=== PATIENT | female | born 1990 | race African-American/Black ===

== ENCOUNTER 2018-03-25 12:14 | Emergency (ER) | payer MEDICAID ==
[~2018-03-25] VITALS: Ht 157.5 cm; Wt 63.0 kg
[2018-03-25 15:35] LABS: CLARITY URINE CLEAR (CLEAR); COLOR URINE YELLOW (YELLOW); KETONES URINE NEGATIVE (NEGATIVE); LEUKOCYTE ESTERASE URINE TRACE (NEGATIVE); NITRITE URINE NEGATIVE (NEGATIVE); OCCULT BLOOD URINE NEGATIVE (NEGATIVE); PROTEIN URINE NEGATIVE (NEGATIVE); SPECIFIC GRAVITY URINE 1.018 (1.005-1.030)
[2018-03-25 18:10] VITALS: BP 112/53
== END 2018-03-25 18:44 | disposition home or self-care (01) ==
LOC: EDBD → ER 12:14
DX: O23.33 Infections of other parts of urinary tract in pregnancy, third trimester (principal); M79.602 Pain in left arm; M79.89 Other specified soft tissue disorders; Z3A.28 28 weeks gestation of pregnancy
CPT/HCPCS: 73030; 73130; 81025; 93005; 93971; 99284

== ENCOUNTER 2018-04-16 18:18 | Observation (INO) | payer MEDICAID ==
[~2018-04-16] VITALS: Ht 157.5 cm; Wt 62.6 kg
[2018-04-16] MEDS ORDERED: PNV1TABL50 MT (18:26)
[2018-04-16] MEDS ORDERED: FERR236T3 MT (18:27)
[2018-04-16] MEDS ORDERED: LACTATED RINGERS 1,000 ML IV SCH (18:30)
[2018-04-16] MEDS ORDERED: ACETAMINOPHEN 500MG TABLET PO SCH (18:47)
== END 2018-04-16 22:17 | disposition home or self-care (01) ==
LOC: 8 EST LDRP 18:18
PROVIDERS: ADMIT Obstetrics & Gynecology; ATTEND Obstetrics & Gynecology
DX: O26.893 Other specified pregnancy related conditions, third trimester (principal); M54.2 Cervicalgia; M54.9 Dorsalgia, unspecified; R10.9 Unspecified abdominal pain; Z3A.33 33 weeks gestation of pregnancy; V49.40XA Driver injured in collision with unspecified motor vehicles in traffic accident, initial encounter; Y93.89 Activity, other specified; Y92.89 Other specified places as the place of occurrence of the external cause; Y99.8 Other external cause status
CPT/HCPCS: 76805; 76818; 99281; G0378; 96360; 96361

== ENCOUNTER 2018-04-30 21:44 | Observation (INO) | payer MEDICAID ==
[~2018-04-30] VITALS: Ht 157.5 cm; Wt 62.6 kg
[~2018-04-30 21:44] MED LIST: FERR236T3 MT; PNV1TABL50 MT
[2018-04-30] MEDS ORDERED: DEXT 5%/LACTATED RINGERS 1,000 ML IV SCH (22:09)
[2018-04-30] MEDS ORDERED: PREN1TAB78 MT (22:11)
[2018-04-30] MEDS ORDERED: ACETAMINOPHEN 500MG TABLET PO NR (22:15)
[2018-04-30 22:57] LABS: CLARITY URINE CLEAR (CLEAR); COLOR URINE YELLOW (YELLOW); KETONES URINE NEGATIVE (NEGATIVE); LEUKOCYTE ESTERASE URINE NEGATIVE (NEGATIVE); NITRITE URINE NEGATIVE (NEGATIVE); OCCULT BLOOD URINE NEGATIVE (NEGATIVE); PH URINE 6.5 (4.5-8.0); PROTEIN URINE NEGATIVE (NEGATIVE); SPECIFIC GRAVITY URINE 1.018 (1.005-1.030)
[2018-05-01] MEDS ORDERED: TERBUTALINE SULFATE 1MG/ML VIAL SUBCUT NR (00:30)
== END 2018-05-01 02:20 | disposition home or self-care (01) ==
LOC: 8 EST LDRP 21:44
PROVIDERS: ADMIT Obstetrics & Gynecology; ATTEND Obstetrics & Gynecology
DX: O26.893 Other specified pregnancy related conditions, third trimester (principal); R10.30 Lower abdominal pain, unspecified; O62.9 Abnormality of forces of labor, unspecified; Z3A.35 35 weeks gestation of pregnancy
CPT/HCPCS: 81003; 96372; 99281; G0378; J3105; 96360; 96361

== ENCOUNTER 2018-12-08 20:36 | Emergency (ER) | payer MEDICAID ==
[~2018-12-08] VITALS: Ht 167.6 cm; Wt 77.0 kg
[~2018-12-08 20:36] MED LIST changes: +PREN1TAB78 MT
[2018-12-08] MEDS ORDERED: SODIUM CHLORIDE 0.9% 1,000 ML IV ONE (21:50)
[2018-12-08] MEDS ORDERED: ONDANSETRON HCL 4MG/2ML INJ IV ONE (22:00)
[2018-12-08 22:27] LABS: CLARITY URINE TURBID (CLEAR); COLOR URINE YELLOW (YELLOW); KETONES URINE 1+ (NEGATIVE); LEUKOCYTE ESTERASE URINE TRACE (NEGATIVE); NITRITE URINE NEGATIVE (NEGATIVE); OCCULT BLOOD URINE 2+ (NEGATIVE); PH URINE 8.5 (4.5-8.0); PROTEIN URINE 1+ (NEGATIVE); SPECIFIC GRAVITY URINE 1.015 (1.005-1.030); UROBILINOGEN URINE 0.2 E.U./dL (0.2-1.0)
[2018-12-09 00:48] LABS: BASOPHILS % 0.3 % (0.0-2.0); EOSINOPHILS % 0.4 % (0.0-5.0); HEMATOCRIT. 39.1 % (36.0-48.0); HEMOGLOBIN. 13.2 g/dL (12.0-16.0); LYMPHOCYTES % 12.7 % (20.0-50.0); MEAN CORPUSCULAR HEMOGLOBIN 29.5 pg (28.0-32.0); MEAN CORPUSCULAR VOLUME 87.3 fL (81.0-99.0); MEAN PLATELET VOLUME 7.6 fl (7.4-10.4); MONOCYTES % 4.3 % (2.0-8.0); NEUTROPHILS % 82.3 % (40.0-76.0); PLATELET 310 x1000/uL (130-400); RED BLOOD CELL COUNT 4.47 mill/uL (4.2-5.4); RED CELL DISTRIBUTION WIDTH 13.9 % (11.6-14.6)
[2018-12-09 00:56] LABS: CHLORIDE 105 mEq/L (98-107)
[2018-12-09 01:05] LABS: B-HCG QUANTITATIVE 16 mIU/mL (<3)
[2018-12-09] MEDS ORDERED: ONDANSETRON HCL 4MG/2ML INJ IV ONE (05:15)
[2018-12-09 05:45] VITALS: BP 115/65
== END 2018-12-09 05:57 | disposition home or self-care (01) ==
LOC: ER 20:36
DX: N93.8 Other specified abnormal uterine and vaginal bleeding (principal); R11.10 Vomiting, unspecified; Z79.899 Other long term (current) drug therapy
CPT/HCPCS: 36415; 76830; 76856; 80053; 81003; 81025; 83690; 84702; 85025; 86850; 86900; 86901; 96361; 96374; 96376; 99284; J2405; J7030; Z7610